=== PATIENT | female | born 1980 | race Two or more races ===

== ENCOUNTER → 2017-01-01 | Outpatient (CLI) | payer SELFPAY | END | disposition disaster alternative care site (69) | LOC: GRAD 09:16 | DX: R10.13 Epigastric pain (principal); K76.0 Fatty (change of) liver, not elsewhere classified; R10.9 Unspecified abdominal pain ==

== ENCOUNTER → 2017-01-02 | Outpatient (CLI) | payer SELFPAY | END | disposition disaster alternative care site (69) | LOC: GRAD 10:27 | DX: R10.13 Epigastric pain (principal); R10.9 Unspecified abdominal pain | CPT/HCPCS: A9537 ==